=== PATIENT | female | born 1950 | race Caucasian/White ===

== ENCOUNTER 2019-09-30 17:03 | Inpatient (IN) | payer MEDICARE, MEDICAID ==
[~2019-09-30] VITALS: Ht 152.4 cm; Wt 55.8 kg
[2019-09-30] MEDS ORDERED: MORPHINE SULFATE 4 MG/ML CPJ (NOT FOR IM USE) IV ONE (17:45)
[2019-09-30] MEDS ORDERED: ONDANSETRON HCL 4MG/2ML INJ IV ONE (17:45)
[2019-09-30 18:02] LABS: BASOPHILS % 0.2 % (0.0-2.0); EOSINOPHILS % 0.1 % (0.0-5.0); HEMATOCRIT. 34.7 % (36.0-48.0); HEMOGLOBIN. 11.9 g/dL (12.0-16.0); LYMPHOCYTES % 15.8 % (20.0-50.0); MEAN CORPUSCULAR HEMOGLOBIN 31.2 pg (28.0-32.0); MEAN CORPUSCULAR VOLUME 91.3 fL (81.0-99.0); MEAN PLATELET VOLUME 10.1 fl (7.4-10.4); MONOCYTES % 9.4 % (2.0-8.0); NEUTROPHILS % 74.5 % (40.0-76.0); PLATELET 82 x1000/uL (130-400); RED CELL DISTRIBUTION WIDTH 14.9 % (11.6-14.6)
[2019-09-30 18:08] LABS: INR 1.1; PROTHROMBIN TIME 11.8 sec (9.6-11.0)
[2019-09-30 18:09] LABS: CHLORIDE 110 mEq/L (98-107)
[2019-09-30 18:16] LABS: ETHANOL BLOOD < 10 mg/dL
[2019-09-30 18:17] LABS: LDL CHOLESTEROL 64 mg/dL (5-100)
[2019-09-30 18:19] LABS: CREATINE KINASE 223 IU/L (26-192)
[2019-09-30] MEDS ORDERED: LEVOFLOXACIN 750MG PREMIX 150 ML IV ONE (21:00)
[2019-09-30] MEDS ORDERED: ONDANSETRON HCL 4MG/2ML INJ IV PRN (23:15)
[2019-09-30] MEDS ORDERED: IPRATROPIUM/ALBUTEROL 0.5-3(2.5)MG/3ML NEB HHN PRN (23:15)
[2019-09-30] MEDS ORDERED: MAGNESIUM/ALUMINUM HYDROXIDE/SIMETHICONE 30ML UDC PO PRN (23:15)
[2019-09-30] MEDS ORDERED: DOCUSATE SODIUM 100MG CAPSULE PO PRN (23:15)
[2019-09-30] MEDS ORDERED: HYDROCODONE/ACETAMINOPHEN 5/325MG TABLET PO PRN (23:15)
[2019-09-30] MEDS ORDERED: CLONIDINE 0.1MG TABLET PO PRN (23:15)
[2019-10-01] LABS: CLARITY URINE CLOUDY (CLEAR); COLOR URINE YELLOW (YELLOW); KETONES URINE NEGATIVE (NEGATIVE); LEUKOCYTE ESTERASE URINE 1+ (NEGATIVE); NITRITE URINE NEGATIVE (NEGATIVE); OCCULT BLOOD URINE 1+ (NEGATIVE); PROTEIN URINE NEGATIVE (NEGATIVE); SPECIFIC GRAVITY URINE 1.016 (1.005-1.030); UROBILINOGEN URINE 0.2 E.U./dL (0.2-1.0)
[2019-10-01 00:46] LABS: *AMPHETAMINES SCREEN URINE NEGATIVE (NEGATIVE); *BARBITURATES SCREEN URINE NEGATIVE (NEGATIVE)
[2019-10-01 00:47] LABS: *BENZODIAZEPINES SCREEN URINE NEGATIVE (NEGATIVE); *COCAINE SCREEN URINE NEGATIVE (NEGATIVE); CANNABINOID URINE SCREEN NEGATIVE (NEGATIVE); METHADONE URINE SCREEN NEGATIVE (NEGATIVE); OPIATES URINE SCREEN PRESUMTIVE POSITIVE (NEGATIVE); PHENCYCLIDINE URINE SCREEN NEGATIVE (NEGATIVE)
[2019-10-01 06:28] LABS: BASOPHILS % 0.4 % (0.0-2.0); EOSINOPHILS % 0.8 % (0.0-5.0); HEMATOCRIT. 27.9 % (36.0-48.0); HEMOGLOBIN. 9.6 g/dL (12.0-16.0); LYMPHOCYTES % 27.2 % (20.0-50.0); MEAN CORPUSCULAR HEMOGLOBIN 31.6 pg (28.0-32.0); MEAN CORPUSCULAR VOLUME 91.9 fL (81.0-99.0); MEAN PLATELET VOLUME 9.4 fl (7.4-10.4); MONOCYTES % 14.9 % (2.0-8.0); NEUTROPHILS % 56.7 % (40.0-76.0); PLATELET 62 x1000/uL (130-400); RED BLOOD CELL COUNT 3.04 mill/uL (4.2-5.4); RED CELL DISTRIBUTION WIDTH 14.7 % (11.6-14.6)
[2019-10-01 06:44] LABS: CREATINE KINASE MB FRACTION 8.3 ng/mL (0.5-3.6)
[2019-10-01 08:00] VITALS: BP 135/56
[2019-10-01 10:22] VITALS: BP 135/56
[2019-10-01] MEDS ORDERED: ASPIRIN 81MG EC TABLET PO SCH (11:00)
[2019-10-01 12:00] VITALS: BP 132/51
[2019-10-01] MEDS ORDERED: SPIR50TA5 MT (14:37)
[2019-10-01] MEDS ORDERED: FURO-151 MT (14:37)
[2019-10-01] MEDS ORDERED: TRAM50TA3 MT (14:37)
[2019-10-01 16:00] VITALS: BP 133/55
[2019-10-01 16:01] VITALS: BP 161/71
[2019-10-01] MEDS ORDERED: ASPIRIN 325MG TABLET PO NR (16:30)
[2019-10-01 16:34] LABS: CREATINE KINASE 434 IU/L (26-192)
[2019-10-01 16:35] LABS: CREATINE KINASE MB FRACTION 5.1 ng/mL (0.5-3.6)
[2019-10-01 19:47] LABS: TOTAL IRON BINDING CAPACITY 358 ug/dL (250-450)
[2019-10-01 20:00] VITALS: BP 125/58
[2019-10-02] VITALS: BP 116/46
[2019-10-02 04:00] VITALS: BP 136/50
[2019-10-02] MEDS: IPRATROPIUM/ALBUTEROL 0.5-3(2.5)MG/3ML NEB HHN SCH ×4 (06:32→21:13)
[2019-10-02 08:00] VITALS: BP 118/47
[2019-10-02] MEDS: CLOPIDOGREL 75MG TABLET PO SCH (11:24)
[2019-10-02] MEDS: ASPIRIN 81MG EC TABLET PO SCH (11:24)
[2019-10-02 11:29] VITALS: BP 121/48
[2019-10-02 13:20] LABS: CHLORIDE 112 mEq/L (98-107)
[2019-10-02 13:25] LABS: HEMATOCRIT 27.2 % (36.0-48.0); HEMOGLOBIN 9.3 g/dL (12.0-16.0); MEAN CORPUSCULAR HEMOGLOBIN 31.6 pg (28.0-32.0); MEAN CORPUSCULAR VOLUME 92.1 fL (81.0-99.0); PLATELET 57 x1000/uL (130-400); RED BLOOD CELL COUNT 2.95 mill/uL (4.2-5.4); RED CELL DISTRIBUTION WIDTH 15.1 % (11.6-14.6)
[2019-10-02 16:00] VITALS: BP 116/51
[2019-10-02 20:00] VITALS: BP 122/47
[2019-10-02] MEDS: ACETAMINOPHEN 325MG TABLET PO PRN (20:39)
[2019-10-02] MEDS ORDERED: LEVOFLOXACIN 750MG PREMIX 150 ML IV SCH (21:00)
[2019-10-03] VITALS: BP 127/85
[2019-10-03] MEDS: IPRATROPIUM/ALBUTEROL 0.5-3(2.5)MG/3ML NEB HHN SCH ×2 (02:20→20:57)
[2019-10-03] MEDS: ACETAMINOPHEN 325MG TABLET PO PRN (02:38)
[2019-10-03 04:00] VITALS: BP 121/53
[2019-10-03] MEDS: CLOPIDOGREL 75MG TABLET PO SCH (07:44)
[2019-10-03] MEDS: ASPIRIN 81MG EC TABLET PO SCH (07:44)
[2019-10-03 08:00] VITALS: BP 122/50
[2019-10-03 12:00] VITALS: BP 134/60
[2019-10-03 16:00] VITALS: BP 133/58
[2019-10-03] MEDS: FERROUS SULFATE 325MG TABLET PO SCH (16:27)
[2019-10-03 20:00] VITALS: BP 126/56
[2019-10-03] MEDS ORDERED: ZOLPIDEM TARTRATE 5MG TABLET PO PRN (20:00)
[2019-10-04] VITALS: BP 115/51
[2019-10-04] MEDS: TRAMADOL 50MG TABLET PO PRN ×2 (01:43→11:39)
[2019-10-04 04:00] VITALS: BP 131/58
[2019-10-04 08:00] VITALS: BP 120/48
[2019-10-04] MEDS: IPRATROPIUM/ALBUTEROL 0.5-3(2.5)MG/3ML NEB HHN SCH ×2 (08:00→15:06)
[2019-10-04] MEDS ORDERED: SPIRONOLACTONE 50MG TABLET PO SCH (09:00)
[2019-10-04] MEDS: CLOPIDOGREL 75MG TABLET PO SCH (09:10)
[2019-10-04] MEDS: FERROUS SULFATE 325MG TABLET PO SCH ×2 (09:10→11:39)
[2019-10-04] MEDS: ASPIRIN 81MG EC TABLET PO SCH (09:10)
[2019-10-04 12:00] VITALS: BP 119/50
[2019-10-04 15:20] VITALS: BP 119/50
== END 2019-10-04 16:53 | DRG 64 ==
LOC: ER 17:03 → 5WST 22:14 → EDBEDREQ 22:17 → EDBEDREQTM 22:17 → EDBEDREQSVC 22:17 → ENRESERV 10-01 08:18 → 5WST 10-01 10:41
PROVIDERS: ADMIT Family Medicine Adult Medicine; ATTEND Family Medicine Adult Medicine
DX: I63.9 Cerebral infarction, unspecified (principal); J69.0 Pneumonitis due to inhalation of food and vomit; G93.6 Cerebral edema; G93.40 Encephalopathy, unspecified; J44.0 Chronic obstructive pulmonary disease with (acute) lower respiratory infection; N39.0 Urinary tract infection, site not specified; D64.9 Anemia, unspecified; I48.91 Unspecified atrial fibrillation; G47.00 Insomnia, unspecified; I65.22 Occlusion and stenosis of left carotid artery; M19.90 Unspecified osteoarthritis, unspecified site; D72.819 Decreased white blood cell count, unspecified; I10 Essential (primary) hypertension; D69.6 Thrombocytopenia, unspecified; I45.10 Unspecified right bundle-branch block; K74.60 Unspecified cirrhosis of liver; Z85.038 Personal history of other malignant neoplasm of large intestine; Z90.49 Acquired absence of other specified parts of digestive tract; Z82.49 Family history of ischemic heart disease and other diseases of the circulatory system; Z88.0 Allergy status to penicillin
CPT/HCPCS: 36415; 70551; 71045; 80048; 80053; 80061; 80305; 80320; 81003; 82550; 82553; 82728; 83540; 83550; 83605; 83721; 83735; 83880; 84443; 84484; 85025; 85027; 87804; 92523; 93005; 93306; 93880; 93970; 94640; 96365; 97110; 97116; 97162; 97166; 99291; J1956; J2270; J2405; J7040; G0480

== ENCOUNTER 2019-10-04 17:00 | Inpatient (IN) | payer MEDICARE, MEDICAID ==
[~2019-10-04] VITALS: Ht 152.4 cm; Wt 54.9 kg
[2019-10-04 17:00] VITALS: BP 133/56
[~2019-10-04 17:00] MED LIST: FURO-151 MT; SPIR50TA5 MT; TRAM50TA3 MT
[2019-10-04] MEDS ORDERED: IPRATROPIUM/ALBUTEROL 0.5-3(2.5)MG/3ML NEB HHN PRN (17:30)
[2019-10-04] MEDS ORDERED: DOCUSATE SODIUM 100MG CAPSULE PO SCH (17:30)
[2019-10-04] MEDS ORDERED: MAGNESIUM/ALUMINUM HYDROXIDE/SIMETHICONE 30ML UDC PO PRN (17:30)
[2019-10-04] MEDS ORDERED: ONDANSETRON HCL 4MG/2ML INJ IV PRN (17:30)
[2019-10-04] MEDS ORDERED: CLONIDINE 0.1MG TABLET PO PRN (17:30)
[2019-10-04 20:00] VITALS: BP 129/45
[2019-10-04] MEDS: IPRATROPIUM/ALBUTEROL 0.5-3(2.5)MG/3ML NEB HHN SCH (20:10)
[2019-10-04] MEDS ORDERED: LEVOFLOXACIN 750MG PREMIX 150 ML IV SCH (21:00)
[2019-10-04] MEDS: ZOLPIDEM TARTRATE 5MG TABLET PO PRN (21:00)
[2019-10-04] MEDS: LEVOFLOXACIN 500MG TABLET PO SCH (21:49)
[2019-10-05] MEDS: IPRATROPIUM/ALBUTEROL 0.5-3(2.5)MG/3ML NEB HHN SCH ×4 (01:20→22:16)
[2019-10-05] MEDS: ACETAMINOPHEN 325MG TABLET PO PRN (05:12)
[2019-10-05 08:01] VITALS: BP 112/45
[2019-10-05] MEDS: CLOPIDOGREL 75MG TABLET PO SCH (08:47)
[2019-10-05] MEDS: SPIRONOLACTONE 50MG TABLET PO SCH (08:47)
[2019-10-05] MEDS: ASPIRIN 81MG EC TABLET PO SCH (08:47)
[2019-10-05] MEDS: FERROUS SULFATE 325MG TABLET PO SCH ×3 (08:47→18:09)
[2019-10-05] MEDS ORDERED: PNEUMOCOCCAL 23-VAL P-SAC VAC 0.5 ML IM ONE (09:00)
[2019-10-05] MEDS: TRAMADOL 50MG TABLET PO PRN (10:15)
[2019-10-05] MEDS ORDERED: HYDROCODONE/ACETAMINOPHEN 5/325MG TABLET PO PRN (14:45)
[2019-10-05] MEDS ORDERED: NA PHOS,M-B/NA PHOS,DI-BA ENEMA 118ML PR PRN (14:45)
[2019-10-05] MEDS ORDERED: BISACODYL 5MG TABLET PO PRN (14:45)
[2019-10-05] MEDS ORDERED: LACTULOSE 20G/30ML UDC PO PRN (14:45)
[2019-10-05 16:13] LABS: HEMATOCRIT 28.7 % (36.0-48.0); HEMOGLOBIN 9.7 g/dL (12.0-16.0); MEAN CORPUSCULAR HEMOGLOBIN 31.8 pg (28.0-32.0); MEAN CORPUSCULAR VOLUME 93.8 fL (81.0-99.0); PLATELET 56 x1000/uL (130-400); RED BLOOD CELL COUNT 3.06 mill/uL (4.2-5.4); RED CELL DISTRIBUTION WIDTH 15.3 % (11.6-14.6)
[2019-10-05] MEDS ORDERED: INFLUENZA VIRUS VACCINE(AFLURIA) 0.5ML SYR IM ONE (19:30)
[2019-10-05 20:00] VITALS: BP 107/44
[2019-10-05] MEDS: ZOLPIDEM TARTRATE 5MG TABLET PO PRN (21:15)
[2019-10-06] MEDS: TRAMADOL 50MG TABLET PO PRN ×3 (00:09→16:41)
[2019-10-06] MEDS: IPRATROPIUM/ALBUTEROL 0.5-3(2.5)MG/3ML NEB HHN SCH ×3 (03:24→20:43)
[2019-10-06 06:18] LABS: BASOPHILS % 0.5 % (0.0-2.0); EOSINOPHILS % 2.8 % (0.0-5.0); HEMOGLOBIN. 9.5 g/dL (12.0-16.0); LYMPHOCYTES % 34.9 % (20.0-50.0); MEAN CORPUSCULAR HEMOGLOBIN 31.7 pg (28.0-32.0); MEAN CORPUSCULAR VOLUME 93.1 fL (81.0-99.0); MEAN PLATELET VOLUME 9.8 fl (7.4-10.4); MONOCYTES % 13.4 % (2.0-8.0); NEUTROPHILS % 48.4 % (40.0-76.0); PLATELET 61 x1000/uL (130-400); RED CELL DISTRIBUTION WIDTH 15.2 % (11.6-14.6)
[2019-10-06 07:55] VITALS: BP 107/45
[2019-10-06] MEDS: FERROUS SULFATE 325MG TABLET PO SCH ×3 (08:48→16:36)
[2019-10-06] MEDS: CLOPIDOGREL 75MG TABLET PO SCH (08:48)
[2019-10-06] MEDS: ASPIRIN 81MG EC TABLET PO SCH (08:48)
[2019-10-06] MEDS: SPIRONOLACTONE 50MG TABLET PO SCH (08:49)
[2019-10-06] MEDS: ACETAMINOPHEN 325MG TABLET PO PRN (11:40)
[2019-10-06] MEDS: ONDANSETRON HCL 4MG TABLET PO PRN (19:56)
[2019-10-06 20:00] VITALS: BP 115/41
[2019-10-06] MEDS: LEVOFLOXACIN 500MG TABLET PO SCH (21:16)
[2019-10-06] MEDS: ZOLPIDEM TARTRATE 5MG TABLET PO PRN (21:16)
[2019-10-07] MEDS: IPRATROPIUM/ALBUTEROL 0.5-3(2.5)MG/3ML NEB HHN SCH ×4 (02:31→21:37)
[2019-10-07 06:28] LABS: HEMATOCRIT. 25.2 % (36.0-48.0); HEMOGLOBIN. 8.6 g/dL (12.0-16.0); MEAN CORPUSCULAR HEMOGLOBIN 32.2 pg (28.0-32.0); MEAN CORPUSCULAR VOLUME 94.2 fL (81.0-99.0); MEAN PLATELET VOLUME 10.2 fl (7.4-10.4); RED BLOOD CELL COUNT 2.67 mill/uL (4.2-5.4); RED CELL DISTRIBUTION WIDTH 14.9 % (11.6-14.6)
[2019-10-07 07:51] VITALS: BP 107/43
[2019-10-07] MEDS: LIDOCAINE 5% PATCH TOP SCH ×3 (08:04→12:01)
[2019-10-07] MEDS: ASPIRIN 81MG EC TABLET PO SCH (08:06)
[2019-10-07] MEDS: FERROUS SULFATE 325MG TABLET PO SCH ×3 (08:07→16:49)
[2019-10-07] MEDS: CLOPIDOGREL 75MG TABLET PO SCH (08:07)
[2019-10-07] MEDS: SPIRONOLACTONE 50MG TABLET PO SCH (08:08)
[2019-10-07] MEDS: TRAMADOL 50MG TABLET PO PRN (08:08)
[2019-10-07] MEDS: ONDANSETRON HCL 4MG TABLET PO PRN (08:16)
[2019-10-07 08:31] LABS: PLATELET 48 x1000/uL (130-400)
[2019-10-07] MEDS: ACETAMINOPHEN 325MG TABLET PO PRN (15:10)
[2019-10-07 17:27] LABS: PLATELET ESTIMATE MARKEDLY DECREASED
[2019-10-07 20:00] VITALS: BP 104/45
[2019-10-08] MEDS: IPRATROPIUM/ALBUTEROL 0.5-3(2.5)MG/3ML NEB HHN SCH ×4 (01:59→21:40)
[2019-10-08 07:50] VITALS: BP 119/43
[2019-10-08 08:11] LABS: HEMATOCRIT. 25.8 % (36.0-48.0); MEAN CORPUSCULAR HEMOGLOBIN 32.5 pg (28.0-32.0); MEAN CORPUSCULAR VOLUME 93.8 fL (81.0-99.0); MEAN PLATELET VOLUME 10.2 fl (7.4-10.4); PLATELET 51 x1000/uL (130-400); RED BLOOD CELL COUNT 2.75 mill/uL (4.2-5.4); RED CELL DISTRIBUTION WIDTH 15.6 % (11.6-14.6)
[2019-10-08] MEDS: FERROUS SULFATE 325MG TABLET PO SCH ×3 (09:21→17:58)
[2019-10-08] MEDS: SPIRONOLACTONE 50MG TABLET PO SCH (09:21)
[2019-10-08] MEDS: LIDOCAINE 5% PATCH TOP SCH ×3 (09:21→09:22)
[2019-10-08] MEDS: TRAMADOL 50MG TABLET PO PRN (12:19)
[2019-10-08 13:48] LABS: PLATELET ESTIMATE MARKEDLY DECREASED
[2019-10-08] MEDS ORDERED: HYDROCODONE/ACETAMINOPHEN 5/325MG TABLET PO PRN (14:45)
[2019-10-08] MEDS ORDERED: OXYCODONE HCL 5MG TABLET PO SCH (17:00)
[2019-10-08 20:00] VITALS: BP 117/49
[2019-10-08] MEDS: ZOLPIDEM TARTRATE 5MG TABLET PO PRN (22:00)
[2019-10-09 06:59] LABS: BASOPHILS % 0.6 % (0.0-2.0); EOSINOPHILS % 3.5 % (0.0-5.0); HEMATOCRIT. 25.5 % (36.0-48.0); HEMOGLOBIN. 8.9 g/dL (12.0-16.0); LYMPHOCYTES % 35.1 % (20.0-50.0); MEAN CORPUSCULAR VOLUME 94.1 fL (81.0-99.0); MEAN PLATELET VOLUME 9.9 fl (7.4-10.4); MONOCYTES % 13.1 % (2.0-8.0); NEUTROPHILS % 47.7 % (40.0-76.0); PLATELET 55 x1000/uL (130-400); RED BLOOD CELL COUNT 2.71 mill/uL (4.2-5.4); RED CELL DISTRIBUTION WIDTH 15.7 % (11.6-14.6)
[2019-10-09 08:00] VITALS: BP 112/43
[2019-10-09 08:07] VITALS: BP 144/42
[2019-10-09] MEDS: SPIRONOLACTONE 50MG TABLET PO SCH (09:05)
[2019-10-09] MEDS: FERROUS SULFATE 325MG TABLET PO SCH ×3 (09:05→17:37)
[2019-10-09] MEDS: LIDOCAINE 5% PATCH TOP SCH ×3 (09:06→09:07)
[2019-10-09] MEDS: IPRATROPIUM/ALBUTEROL 0.5-3(2.5)MG/3ML NEB HHN SCH ×3 (09:51→22:07)
[2019-10-09 20:00] VITALS: BP 130/50
[2019-10-09] MEDS: ONDANSETRON HCL 4MG TABLET PO PRN (20:40)
[2019-10-09] MEDS: ZOLPIDEM TARTRATE 5MG TABLET PO PRN (22:01)
[2019-10-10] MEDS: IPRATROPIUM/ALBUTEROL 0.5-3(2.5)MG/3ML NEB HHN SCH ×4 (02:38→20:41)
[2019-10-10] MEDS: ACETAMINOPHEN 325MG TABLET PO PRN ×3 (03:43→21:02)
[2019-10-10 08:00] VITALS: BP 114/40
[2019-10-10] MEDS: SPIRONOLACTONE 50MG TABLET PO SCH (08:16)
[2019-10-10] MEDS: FERROUS SULFATE 325MG TABLET PO SCH ×3 (08:16→16:42)
[2019-10-10] MEDS: LIDOCAINE 5% PATCH TOP SCH ×3 (08:17)
[2019-10-10] MEDS: TRAMADOL 50MG TABLET PO PRN (09:41)
[2019-10-10 20:00] VITALS: BP 145/55
[2019-10-10] MEDS: ZOLPIDEM TARTRATE 5MG TABLET PO PRN (22:57)
[2019-10-11] MEDS: IPRATROPIUM/ALBUTEROL 0.5-3(2.5)MG/3ML NEB HHN SCH ×4 (01:11→22:28)
[2019-10-11] MEDS: TRAMADOL 50MG TABLET PO PRN (01:35)
[2019-10-11 07:35] VITALS: BP 123/49
[2019-10-11] MEDS: LIDOCAINE 5% PATCH TOP SCH ×3 (08:15→08:16)
[2019-10-11] MEDS: FERROUS SULFATE 325MG TABLET PO SCH ×3 (08:16→16:22)
[2019-10-11] MEDS: SPIRONOLACTONE 50MG TABLET PO SCH (08:16)
[2019-10-11] MEDS: ACETAMINOPHEN 325MG TABLET PO PRN (09:31)
[2019-10-11 20:00] VITALS: BP 113/64
[2019-10-11] MEDS: ZOLPIDEM TARTRATE 5MG TABLET PO PRN (22:22)
[2019-10-12] MEDS: TRAMADOL 50MG TABLET PO PRN (00:36)
[2019-10-12] MEDS: IPRATROPIUM/ALBUTEROL 0.5-3(2.5)MG/3ML NEB HHN SCH ×4 (03:50→20:07)
[2019-10-12 07:45] LABS: BASOPHILS % 0.5 % (0.0-2.0); EOSINOPHILS % 2.7 % (0.0-5.0); HEMATOCRIT. 26.3 % (36.0-48.0); HEMOGLOBIN. 9.2 g/dL (12.0-16.0); MEAN CORPUSCULAR VOLUME 94.6 fL (81.0-99.0); MEAN PLATELET VOLUME 9.8 fl (7.4-10.4); MONOCYTES % 11.9 % (2.0-8.0); NEUTROPHILS % 51.9 % (40.0-76.0); RED BLOOD CELL COUNT 2.78 mill/uL (4.2-5.4); RED CELL DISTRIBUTION WIDTH 16.4 % (11.6-14.6)
[2019-10-12 08:15] LABS: PLATELET 50 x1000/uL (130-400)
[2019-10-12 08:34] VITALS: BP 129/48
[2019-10-12] MEDS: FERROUS SULFATE 325MG TABLET PO SCH ×3 (08:39→16:01)
[2019-10-12] MEDS: HYDROCODONE/ACETAMINOPHEN 5/325MG TABLET PO PRN ×2 (08:39→14:39)
[2019-10-12] MEDS: SPIRONOLACTONE 50MG TABLET PO SCH (08:40)
[2019-10-12] MEDS: LIDOCAINE 5% PATCH TOP SCH ×3 (08:40→08:41)
[2019-10-12 14:35] VITALS: BP 129/58
[2019-10-12 17:25] LABS: PLATELET ESTIMATE MARKEDLY DECREASED
[2019-10-12] MEDS: ONDANSETRON HCL 4MG TABLET PO PRN (18:42)
[2019-10-12 20:00] VITALS: BP 121/50
[2019-10-12] MEDS: ZOLPIDEM TARTRATE 5MG TABLET PO PRN (22:21)
[2019-10-13] MEDS: IPRATROPIUM/ALBUTEROL 0.5-3(2.5)MG/3ML NEB HHN SCH ×4 (03:09→20:13)
[2019-10-13 07:53] VITALS: BP 119/44
[2019-10-13] MEDS: SPIRONOLACTONE 50MG TABLET PO SCH (08:47)
[2019-10-13] MEDS: HYDROCODONE/ACETAMINOPHEN 5/325MG TABLET PO PRN ×2 (08:47→14:47)
[2019-10-13] MEDS: LIDOCAINE 5% PATCH TOP SCH ×3 (08:47→08:48)
[2019-10-13] MEDS: FERROUS SULFATE 325MG TABLET PO SCH ×3 (08:47→16:38)
[2019-10-13] MEDS ORDERED: HYDROCODONE/ACETAMINOPHEN 5/325MG TABLET PO PRN (15:00)
[2019-10-13 20:00] VITALS: BP 115/40
[2019-10-13] MEDS: ZOLPIDEM TARTRATE 5MG TABLET PO PRN (22:37)
[2019-10-14] MEDS: TRAMADOL 50MG TABLET PO PRN ×2 (01:24→12:40)
[2019-10-14] MEDS: IPRATROPIUM/ALBUTEROL 0.5-3(2.5)MG/3ML NEB HHN SCH ×5 (02:19→20:13)
[2019-10-14 07:13] LABS: BASOPHILS % 0.3 % (0.0-2.0); EOSINOPHILS % 1.9 % (0.0-5.0); HEMATOCRIT. 26.1 % (36.0-48.0); HEMOGLOBIN. 8.8 g/dL (12.0-16.0); LYMPHOCYTES % 25.9 % (20.0-50.0); MEAN CORPUSCULAR HEMOGLOBIN 32.3 pg (28.0-32.0); MEAN CORPUSCULAR VOLUME 95.3 fL (81.0-99.0); MEAN PLATELET VOLUME 10.1 fl (7.4-10.4); NEUTROPHILS % 61.9 % (40.0-76.0); RED BLOOD CELL COUNT 2.74 mill/uL (4.2-5.4); RED CELL DISTRIBUTION WIDTH 16.8 % (11.6-14.6)
[2019-10-14 07:35] LABS: PLATELET 42 x1000/uL (130-400)
[2019-10-14 08:00] VITALS: BP 106/43
[2019-10-14] MEDS: FERROUS SULFATE 325MG TABLET PO SCH ×3 (08:17→16:14)
[2019-10-14] MEDS: SPIRONOLACTONE 50MG TABLET PO SCH (08:18)
[2019-10-14] MEDS: LIDOCAINE 5% PATCH TOP SCH ×3 (08:18→08:19)
[2019-10-14] MEDS ORDERED: LIDO700A30 TOP (10:31)
[2019-10-14] MEDS ORDERED: FERR325T23 PO (10:31)
[2019-10-14] MEDS: ONDANSETRON HCL 4MG TABLET PO PRN (14:01)
[2019-10-14 20:00] VITALS: BP 109/60
[2019-10-14] MEDS ORDERED: ZOLPIDEM TARTRATE 5MG TABLET PO PRN (22:00)
[2019-10-15] MEDS: IPRATROPIUM/ALBUTEROL 0.5-3(2.5)MG/3ML NEB HHN SCH (03:14)
[2019-10-15 08:40] VITALS: BP 106/40
[2019-10-15] MEDS: FERROUS SULFATE 325MG TABLET PO SCH ×2 (08:44→12:01)
[2019-10-15] MEDS: SPIRONOLACTONE 50MG TABLET PO SCH (08:44)
[2019-10-15] MEDS: LIDOCAINE 5% PATCH TOP SCH ×3 (08:45→08:46)
[2019-10-15 09:23] VITALS: BP 106/40
[2019-10-15] MEDS: ONDANSETRON HCL 4MG TABLET PO PRN (13:12)
== END 2019-10-15 16:38 | disposition home health service (06) | DRG 64 ==
PROVIDERS: ADMIT Psychiatry & Neurology Neurology; ATTEND Internal Medicine
DX: I63.511 Cerebral infarction due to unspecified occlusion or stenosis of right middle cerebral artery (principal); G93.6 Cerebral edema; J69.0 Pneumonitis due to inhalation of food and vomit; J90 Pleural effusion, not elsewhere classified; D64.9 Anemia, unspecified; G47.00 Insomnia, unspecified; I10 Essential (primary) hypertension; J45.909 Unspecified asthma, uncomplicated; K74.60 Unspecified cirrhosis of liver; M13.0 Polyarthritis, unspecified; Z85.038 Personal history of other malignant neoplasm of large intestine; Z86.73 Personal history of transient ischemic attack (TIA), and cerebral infarction without residual deficits
CPT/HCPCS: 36415; 71100; 76604; 80048; 82962; 83735; 85025; 85027; 90686; 92523; 92610; 94640; 97110; 97116; 97150; 97162; 97166; 97530; 97535; J1956; Q0162